=== PATIENT | female | born 1960 | race Two or more races ===

== ENCOUNTER 2021-05-14 15:53 | Emergency (ER) | payer MEDICAID ==
[~2021-05-14] VITALS: Ht 160 cm; Wt 79.4 kg
[2021-05-14 16:00] VITALS: BP 162/91
[2021-05-14] MEDS ORDERED: TRAM50TA2 PO (17:29)
[2021-05-14] MEDS ORDERED: HYDROCODONE/APAP 5/325MG TABLET PO ONE (17:30)
[2021-05-14] MEDS ORDERED: HYDROCODONE/APAP 5/325MG TABLET ONE (17:33)
--- NOTE | 2021-05-14 17:41 | NUR ---
Patient discharged to home in stable condition. Written and verbal after care instructions given. Patient verbalizes understanding of instruction.
== END 2021-05-14 17:41 | disposition home or self-care (01) ==
LOC: ER 15:59
DX: S00.93XA Contusion of unspecified part of head, initial encounter (principal); E11.9 Type 2 diabetes mellitus without complications; Y08.89XA Assault by other specified means, initial encounter; Y93.89 Activity, other specified; Y92.89 Other specified places as the place of occurrence of the external cause; Y99.8 Other external cause status
CPT/HCPCS: 70450-TC; 72125-TC